=== PATIENT | male | born 1930 | race Caucasian/White ===

== ENCOUNTER 2019-07-20 06:40 | Day surgery (SDC) | payer OTHER ==
[~2019-07-20] VITALS: Ht 167.6 cm; Wt 66.2 kg
[~2019-07-20 06:40] MED LIST: FENOFIBRATE50 MG PO; FINASTERIDE5 MG PO; GLIPIZIDE XL5 MG PO; NEMANTINE PO; SYNTHROID PO; TAMS0.4C PO
== END 2019-07-21 08:00 | disposition home or self-care (01) ==
LOC: CIR.AMB 06:40 → SURH 08:00 → EDSTATUS 08:00 → CIR.AMB 08:00 → SURH 09:00 → CIR.AMB 14:44 → O/R 14:44 → SURH 14:44 → O/R 15:48 → CIR.AMB 07-21 08:00 → O/R 07-21 11:59 → SURH 07-21 11:59
DX: N40.1 Benign prostatic hyperplasia with lower urinary tract symptoms (principal); R33.8 Other retention of urine; E11.9 Type 2 diabetes mellitus without complications; Z79.4 Long term (current) use of insulin